=== PATIENT | female | born 1990 | race Caucasian/White ===

== ENCOUNTER 2017-11-10 23:17 | Emergency (ER) | payer SELFPAY ==
[~2017-11-10] VITALS: Ht 167.6 cm; Wt 76.3 kg
[~2017-11-10 23:17] MED LIST: ACET300T49 PO; ALBU0.63 NEB; BENZ1LOZ5 BUCCAL; FAMO20TA2 PO; IPRA17I INH; LORA-361 PO; MUCI600T PO; NICO21DI2 TD; PRED10PA PO; PRED20 PO; SYMB160A INH; ZITH250T PO
[2017-11-10 23:28] VITALS: BP 145/89; PULSE 101; RESP 20; TEMP 98.3; O2SAT 97
[2017-11-11 00:37] VITALS: BP 145/89; PULSE 101; RESP 20; TEMP 98.3; O2SAT 95
[2017-11-11 01:32] VITALS: BP 128/77; PULSE 81; RESP 20; O2SAT 96
[2017-11-11 02:32] VITALS: BP 131/91; PULSE 121; RESP 20; O2SAT 92; O2SAT 96
--- NOTE | 2017-11-11 03:24 | PD ---
HPI Chief Complaint: Respiratory Symptoms Time Seen by Provider: 03:21 Travel History International Travel<30 days: No Contact w/Intl Traveler<30days: No Traveled to known affect area: No History of Present Illness HPI The patient is a 27-year-old female that complains of wheezing and asthma for 2 weeks. She ran out of her albuterol nebulizer treatments, she does have a nebulizer at home. She denies any fever. She states she is not . Her only chest pain is her usual tightness in the chest when she has asthma. PFSH Past Medical History Asthma: Yes Cancer: No Cardiovascular Problems: Yes Chest Pain: Yes (FROM COUGHING AND WHEEZING) COPD: No Endocrine: No Genitourinary: No Immune Disorder: No Musculoskeletal: No Neurologic: No Psychiatric: No Reproductive: No Respiratory: Yes Sleep Apnea: No Influenza Vaccination: No ?: Not LMP: Now : 1 Para: 0 Miscarriage: 0 : 1 Past Surgical History Surgical History: No Previous Surgery Other Surgery: No Social History Alcohol Use: Yes (Occasional ) Tobacco Use: No (quit 2 months) Substance Use: No Allergies-Medications (Allergen,Severity, Reaction): Coded Allergies: No Known Allergies (Verified Adverse Reaction, Unknown, 11/11/17) Reported Meds & Prescriptions Reported Meds & Active Scripts Active Acetaminophen-Codeine 300-15 mg Tab 1 Tab PO Q6H PRN Prednisone (21) 10 mg tab Dose Pack (Prednisone) 10 Mg Pack 10 Mg PO DIRECTED Take 40mg daily for 3 days, 20mg daily for 3 days, 10mg daily for 3 days, 5 mg daily for 3 days, then stop. Atrovent HFA 12.9 GM Inh (Ipratropium [place]) 17 Mcg/Act Aer 2 Puff INH TID Nicotine Patch (Nicotine) 21 Mg/24 Hr Patch 1 Patch TD DAILY Famotidine 20 Mg Tab 20 Mg PO HS Symbicort Inh (Budesonide/Formoterol Fumarate) 160-4.5 Mcg/Act Aero 2 Puff INH Q12HR 30 Days Cepacol Sore Throat Extra Lozenge (Benzocaine/Menthol) 15-3.6 Mg Lozg 1 Lozenge BUCCAL Q2HR PRN Zithromax (Azithromycin) 250 Mg Tab 500 Mg PO DAILY Reported Albuterol Neb (Albuterol Sulfate) 0.63 Mg/3 Ml Neb 0.63 Mg NEB Q4HR NEB PRN Prednisone 20 Mg Tab 20 Mg PO TID Review of Systems Except as stated in HPI: all other systems reviewed are Neg Physical Exam Narrative GENERAL: The patient is alert, oriented 3 in slight respiratory distress with her wheezing. Her vital signs show blood pressure 145/89 with heart rate of 101 but otherwise normal. SKIN: Focused skin assessment warm/dry. HEAD: Atraumatic. Normocephalic. EYES: Pupils equal and round. No scleral icterus. No injection or drainage. ENT: No nasal bleeding or discharge. Mucous membranes pink and moist. NECK: Trachea midline. No JVD. CARDIOVASCULAR: Regular rate and rhythm. No murmur appreciated. RESPIRATORY: No accessory muscle use. Clear to auscultation. Breath sounds equal bilaterally. GASTROINTESTINAL: Abdomen soft, non-tender, nondistended. Hepatic and splenic margins not palpable. MUSCULOSKELETAL: No obvious deformities. No clubbing. No cyanosis. No edema. NEUROLOGICAL: Awake and alert. No obvious cranial nerve deficits. Motor grossly within normal limits. Normal speech. PSYCHIATRIC: Appropriate mood and affect; insight and judgment normal. Data Data Last Documented VS Vital Signs Date Time Temp Pulse Resp B/P (MAP) Pulse Ox O2 Delivery O2 Flow Rate FiO2 11/11/17 04:49 88 18 133/82 (99) 95 Room Air 11/11/17 00:37 98.3 Orders Orders Complete Blood Count With Diff (11/11/17 02:47) Basic Metabolic Panel (Bmp) (11/11/17 02:47) Influenzae A/B Antigen (11/11/17 03:24) Iv Access Insert/Monitor (11/11/17 03:24) Ecg Monitoring (11/11/17 03:24) Oximetry (11/11/17 03:24) Oxygen Administration (11/11/17 03:24) Sodium Chloride 0.9% Flush (Ns Flush) (11/11/17 03:30) Methylprednisolone So Succ Inj (Solumedr (11/11/17 03:30) Albuterol-Ipratropium Neb (Duoneb Neb) (11/11/17 03:30) Labs Laboratory Tests Test 11/11/17 02:53 White Blood Count 8.8 TH/MM3 Red Blood Count 4.47 MIL/MM3 Hemoglobin 14.0 GM/DL Hematocrit 41.8 % Mean Corpuscular Volume 93.6 FL Mean Corpuscular Hemoglobin 31.3 PG Mean Corpuscular Hemoglobin Concent 33.4 % Red Cell Distribution Width 13.1 % Platelet Count 240 TH/MM3 Mean Platelet Volume 8.8 FL Neutrophils (%) (Auto) 51.7 % Lymphocytes (%) (Auto) 33.5 % Monocytes (%) (Auto) 6.5 % Eosinophils (%) (Auto) 6.9 % Basophils (%) (Auto) 1.4 % Neutrophils # (Auto) 4.5 TH/MM3 Lymphocytes # (Auto) 3.0 TH/MM3 Monocytes # (Auto) 0.6 TH/MM3 Eosinophils # (Auto) 0.6 TH/MM3 Basophils # (Auto) 0.1 TH/MM3 CBC Comment DIFF FINAL Differential Comment Blood Urea Nitrogen 9 MG/DL Creatinine 0.77 MG/DL Random Glucose 78 MG/DL Calcium Level 8.2 MG/DL Sodium Level 140 MEQ/L Potassium Level 3.4 MEQ/L Chloride Level 109 MEQ/L Carbon Dioxide Level 22.3 MEQ/L Anion Gap 9 MEQ/L Estimat Glomerular Filtration Rate 91 ML/MIN MDM Medical Decision Making Medical Screen Exam Complete: Yes Emergency Medical Condition: Yes Medical Record Reviewed: Yes Interpretation(s) The CBC is normal. The basic metabolic profile shows a calcium of 8.2 and potassium of 3.4 but is otherwise unremarkable. The influenza A/B antigen is negative for flu a and flu B antigen. Differential Diagnosis Acute asthma, pneumonia, bronchitis with bronchospasm Narrative Course The patient appears to have acute asthma. It is now 0500 and she feels much better. Her lungs have cleared up considerably although a few wheezes are still audible. Plan: The patient will be given refills of albuterol for her nebulizer and 7 days of prednisone, 20 mg twice daily for 6 days. Diagnosis Primary Impression: Asthma with acute exacerbation Additional Instructions: Follow-up with your primary care physician. I refilled the DuoNeb's and the prednisone is 1 tablet twice daily for 6 days. Med/Other Pt SpecificInfo: Prescription(s) given Scripts Prednisone (Prednisone) 20 Mg Tab 20 MG PO BID for 6 Days, #12 TAB 0 Refills Prov: Kyle Zendejas MD 11/11/17 Albuterol Neb (Albuterol Neb) 2.5 Mg/3 Ml Neb 2.5 MG NEB Q4HR NEB for Breathing Treatment, #60 NEBULE 0 Refills While awake Prov: Kyle Zendejas MD 11/11/17 Disposition: 01 DISCHARGE HOME Condition: Stable Kyle Zendejas MD Nov 11, 2017 03:24
[2017-11-11] MEDS ORDERED: methylPREDNISolone SOD SUCC 125 MG/2 ML VIAL IV PUSH ONE (03:30)
[2017-11-11] MEDS ORDERED: SODIUM CHLORIDE 0.9% FLUSH 10 ML FLUSH IVF PRN (03:30)
[2017-11-11] MEDS: RESP: ALBUTEROL 2.5 MG/IPRATROPIUM 0.5 MG NEB (SCH) INH ×3 (03:33→03:56)
[2017-11-11 03:35] VITALS: BP 136/97; PULSE 90; RESP 20; O2SAT 97
[2017-11-11 03:52] LABS: AUTOMATED NEUTROPHIL # 4.5 TH/MM3 (1.8-7.7); BASOPHIL # 0.1 TH/MM3 (0-0.2); BASOPHIL % 1.4 % (0.0-2.0); BICARBONATE 22.3 MEQ/L (21.0-32.0); CALCIUM 8.2 MG/DL (8.5-10.1); EOSINOPHIL # 0.6 TH/MM3 (0-0.4); EOSINOPHIL % 6.9 % (0.0-4.0); HEMATOCRIT 41.8 % (35.0-46.0); LYMPH % 33.5 % (9.0-44.0); MEAN CELL VOLUME 93.6 FL (80.0-100.0); MEAN CORPUSCULAR HEMOGLOBIN 31.3 PG (27.0-34.0); MEAN CORPUSCULAR HGB CONC 33.4 % (32.0-36.0); MEAN PLATELET VOLUME 8.8 FL (7.0-11.0); MONO % 6.5 % (0.0-8.0); MONOCYTE # 0.6 TH/MM3 (0-0.9); NEUT % 51.7 % (16.0-70.0); PLATELET COUNT 240 TH/MM3 (150-450); RED BLOOD COUNT 4.47 MIL/MM3 (4.00-5.30); RED CELL DISTRIBUTION WIDTH 13.1 % (11.6-17.2); WHITE BLOOD COUNT 8.8 TH/MM3 (4.0-11.0)
[2017-11-11 03:56] LABS: CREATININE 0.77 MG/DL (0.50-1.00)
[2017-11-11 04:49] VITALS: BP 133/82; PULSE 88; RESP 18; O2SAT 95
[2017-11-11] MEDS ORDERED: ALBU0.08 NEB (05:00)
[2017-11-11] MEDS ORDERED: PRED20 PO (05:00)
[2017-11-11 05:26] VITALS: BP 125/71
== END 2017-11-11 05:58 | disposition home or self-care (01) ==
LOC: PHED 23:17
DX: J45.901 Unspecified asthma with (acute) exacerbation (principal); Z87.891 Personal history of nicotine dependence
CPT/HCPCS: 80048; 85025; 87804; 94640; 94664; 96374; 99284; J2930

== ENCOUNTER 2017-12-04 16:30 | Emergency (ER) | payer SELFPAY ==
[~2017-12-04] VITALS: Ht 170.2 cm; Wt 76.6 kg
[~2017-12-04 16:30] MED LIST changes: +ALBU0.08 NEB; -LORA-361 PO; -MUCI600T PO
[2017-12-04 16:33] VITALS: BP 136/68; PULSE 97; RESP 16; TEMP 97.8; O2SAT 96
[2017-12-04] MEDS ORDERED: methylPREDNISolone SOD SUCC 125 MG/2 ML VIAL IM ONE (16:45)
[2017-12-04] MEDS ORDERED: RESP: ALBUTEROL 2.5 MG/IPRATROPIUM 0.5 MG NEB (SCH) INH ONE (16:45)
[2017-12-04] MEDS ORDERED: ALBUAER3 INH (16:51)
--- NOTE | 2017-12-04 16:58 | PD ---
HPI Chief Complaint: Respiratory Symptoms Time Seen by Provider: 16:40 Travel History International Travel<30 days: No Contact w/Intl Traveler<30days: No Traveled to known affect area: No History of Present Illness HPI 27-year-old female with history of asthma presents emergency department complaining of shortness of breath, wheezing, chest tightness that started today. Patient says that she used her albuterol inhaler however, did not significantly improve her symptoms. Says she ran out of her home liquid nebulizer medication. Patient does not currently have a primary care physician however, states that her medication is in date. She denies any fevers or chills. Denies significant chest congestion. Says she has had a dry cough, similar to previous episodes of asthma. She denies any other upper respiratory type of symptoms. Says that she has used the DuoNeb combination previously with good relief. She denies chronic medical issues and medication use aside from the asthma. PFSH Past Medical History Asthma: Yes Cancer: No Cardiovascular Problems: Yes Chest Pain: Yes (FROM COUGHING AND WHEEZING) COPD: No Diminished Hearing: No Endocrine: No Genitourinary: No Immune Disorder: No Musculoskeletal: No Neurologic: No Psychiatric: No Reproductive: No Respiratory: Yes (asthma) Sleep Apnea: No Influenza Vaccination: No ?: Not LMP: 11/06/17 : 1 Para: 0 Miscarriage: 0 : 1 Past Surgical History Surgical History: No Previous Surgery Other Surgery: No Social History Alcohol Use: Yes (Occasional ) Tobacco Use: No (Quit this month) Substance Use: No Allergies-Medications (Allergen,Severity, Reaction): Coded Allergies: No Known Allergies (Verified Adverse Reaction, Unknown, 12/04/17) Reported Meds & Prescriptions Reported Meds & Active Scripts Active Ipratropium Neb (Ipratropium [place]) 0.5 Mg/2.5 Ml Amp 0.5 Mg NEB Q2HR NEB PRN 14 Days Albuterol Neb (Albuterol Sulfate) 2.5 Mg/3 Ml Neb 2.5 Mg NEB TID NEB PRN Prednisone 10 Mg Tab 10 Mg PO DAILY 7 Days Reported Proair Hfa 8.5 GM Inh (Albuterol Sulfate) 90 Mcg/Act Aer 2 Puff INH Q4-6H PRN 108 mcg/actuation Review of Systems Except as stated in HPI: all other systems reviewed are Neg Physical Exam Narrative GENERAL: Well-nourished, well-developed patient. In no acute distress SKIN: Focused skin assessment warm/dry. HEAD: Normocephalic. EYES: No scleral icterus. No injection or drainage. No parasinus tenderness NECK: Supple, trachea midline. No JVD or lymphadenopathy. Mild pharyngeal injection with postnasal drip CARDIOVASCULAR: Regular rate and rhythm without murmurs, gallops, or rubs. RESPIRATORY: Breath sounds with diffuse wheezing, diminished lung sounds in the bases. No accessory muscle use, no rales or rhonchi GASTROINTESTINAL: Abdomen soft, non-tender, nondistended. MUSCULOSKELETAL: No cyanosis, or edema. BACK: Nontender without obvious deformity. No CVA tenderness. Data Data Last Documented VS Vital Signs Date Time Temp Pulse Resp B/P (MAP) Pulse Ox O2 Delivery O2 Flow Rate FiO2 12/04/17 16:40 96 12/04/17 16:33 97.8 97 16 136/68 (90) Orders Orders Methylprednisolone So Succ Inj (Solumedr (12/04/17 16:45) Albuterol-Ipratropium Neb (Duoneb Neb) (12/04/17 16:45) Ed Discharge Order (12/04/17 17:18) MDM Medical Decision Making Medical Screen Exam Complete: Yes Emergency Medical Condition: Yes Differential Diagnosis Asthma exacerbation, pneumonia, upper respiratory infection, bronchitis Narrative Course 27-year-old female with a history of asthma presents emergency department with an asthma exacerbation. Vital signs are stable. Physical exam findings consistent of bilateral, diffuse lung sounds with wheezing and diminished breath sounds in the lung base. DuoNeb and Solu-Medrol administered emergency department today. Patient says she can breathe better and feels significantly better. Reevaluation of her lung sounds demonstrate increased breath sounds with decreased wheezing. Patient will be discharged with prednisone, albuterol and ipratropium neb medications for home use. Advised that she should follow-up with his a health with the primary care physician as her asthma is a dangerous condition if not appropriately managed. She states understanding. [facility] clinic information given. Diagnosis Primary Impression: Asthma with acute exacerbation Qualified Codes: J45.21 - Mild intermittent asthma with (acute) exacerbation Referrals: [facility] Additional Instructions: You may use a drop of honey and lemon in a cup of warm water to soothe your cough. (If greater than 1 year old) Ensure good hydration and a nutritious diet. Note that viral infections may last for several weeks. Follow up with your primary physician within 2-3 days. Return to the ED for worsening or persistent symptoms. Take all medications as prescribed. Scripts Ipratropium Neb (Ipratropium Neb) 0.5 Mg/2.5 Ml Amp 0.5 MG NEB Q2HR NEB Y for SHORTNESS OF BREATH for 14 Days, NEBULE 0 Refills Prov: Scot Jean-Baptiste MD 12/04/17 Albuterol Neb (Albuterol Neb) 2.5 Mg/3 Ml Neb 2.5 MG NEB TID NEB Y for SHORTNESS OF BREATH, #60 NEBULE 0 Refills Prov: Scot Jean-Baptiste MD 12/04/17 Prednisone (Prednisone) 10 Mg Tab 10 MG PO DAILY for 7 Days, #7 TAB 0 Refills Prov: Scot Jean-Baptiste MD 12/04/17 Disposition: 01 DISCHARGE HOME Condition: Stable Ariadna Shoemaker Dec 04, 2017 16:58
[2017-12-04] MEDS ORDERED: PRED10 PO (17:16)
[2017-12-04] MEDS ORDERED: ALBU0.08 NEB (17:16)
[2017-12-04] MEDS ORDERED: IPRA0.02 NEB (17:16)
== END 2017-12-04 17:28 | disposition home or self-care (01) ==
LOC: PHEFT 16:30
DX: J45.21 Mild intermittent asthma with (acute) exacerbation (principal)
CPT/HCPCS: 94664; 96372; 99283; J2930